=== PATIENT | female | born 1940 | race Caucasian/White ===

== ENCOUNTER 2025-01-31 10:10 | Inpatient (IN) | payer OTHER, MEDICAID ==
[~2025-01-31] VITALS: Ht 149.9 cm; Wt 65.3 kg
[2025-01-31 11:23] LABS: BASOPHILS # (AUTO) 0.1 K/uL (0.0-0.2); BASOPHILS % (AUTO) 0.4 % (0.0-2.0); EOSINOPHILS # (AUTO) 0.1 K/uL (0.0-0.7); EOSINOPHILS % (AUTO) 0.4 % (0.0-6.0); HEMATOCRIT 39 % (33-45); HEMOGLOBIN 13.5 g/dL (11.5-14.8); LYMPHOCYTES # (AUTO) 2.8 K/uL (0.8-4.8); LYMPHOCYTES % (AUTO) 18.1 % (20.0-44.0); MEAN CORPUSCULAR HEMOGLOBIN 31 PG (26.0-33.0); MEAN CORPUSCULAR HGB CONC 35 g/dl (31.0-36.0); MEAN CORPUSCULAR VOLUME 88 fL (82-100); MONOCYTES # (AUTO) 0.8 K/uL (0.1-1.30); MONOCYTES % (AUTO) 5.1 % (2.0-12.0); NEUTROPHILS # (AUTO) 11.9 K/uL (1.8-8.9); PLATELET COUNT (AUTO) 196 K/uL (150-450); RED BLOOD CELL COUNT(AUTO) 4.42 MIL/uL (4.0-5.2); RED CELL DISTRIBUTION WIDTH 13.4 % (11.5-15.0); WHITE BLOOD COUNT (AUTO) 15.6 K/uL (4.3-11.0)
[2025-01-31 11:28] LABS: CALCIUM, SERUM 9.3 mg/dL (8.5-10.1); CARBON DIOXIDE 23 mmol/L (21-32); CHLORIDE 103 mmol/L (98-107); CREATININE 1.2 mg/dL (0.6-1.3); GLUCOSE 241 mg/dL (74-106); POTASSIUM 3.3 mmol/L (3.5-5.1); SODIUM SERUM 139 mmol/L (136-145); UREA NITROGEN, BLOOD 14 mg/dL (7-18)
[2025-01-31 11:29] LABS: SERUM AMMONIA 11 umol/L (11-32)
[2025-01-31 11:30] LABS: INR 1.08 (0.91-1.10); PARTIAL THROMBOPLASTIN TIME 28.3 SEC (24.3-34.3); PROTHROMBIN TIME 11.4 SECS (9.2-11.1)
[2025-01-31 11:34] LABS: ACETAMINOPHEN <10 ug/ml (10-30); ALANINE AMINOTRANSFERASE 21 U/L (12-78); ALCOHOL, BLOOD < 3 mg/dL (0-10); ALKALINE PHOSPHATASE 119 U/L (46-116); ASPARTATE AMINOTRANSFERASE 52 U/L (15-37); BILIRUBIN,DIRECT 0.2 mg/dL (0.0-0.2); BILIRUBIN,TOTAL 0.8 mg/dL (0.2-1.0); SALICYLATE 1.6 mg/dL (2.8-20.0); TOTAL PROTEIN, SERUM 7.5 g/dL (6.4-8.2)
[2025-01-31 11:37] LABS: LACTIC ACID 3.1 mmol/L (0.4-2.0)
[2025-01-31 11:50] LABS: APPEARANCE,URINE CLEAR (CLEAR); BILIRUBIN,URINE Negative (NEGATIVE); BLOOD, URINE Large Ery/uL (NEGATIVE); COLOR,URINE YELLOW (YELLOW); KETONES,URINE Trace mg/dL (NEGATIVE); LEUKOCYTE ESTERASE ,URINE Negative (NEGATIVE); NITRITE, URINE NEGATIVE (NEGATIVE); PH,URINE 5.5 (5.0-8.0); PROTEIN,URINE 30 mg/dl (NEGATIVE); UGLUCOSE 250 MG/DL mg/dL (NEGATIVE); UROBILINOGEN,URINE 0.2 EU/dL (0.2)
[2025-01-31 12:01] LABS: ADD URINE CULTURE NO; BACTERIA,URINE Few /HPF (None Seen); HYALINE CASTS, URINE Few /LPF (None Seen); SQUAMOUS EPITHELIAL CELL,UR Few /HPF (None Seen)
[2025-01-31] MEDS: IV NS 0.9% 1,000 ML BAG IV ONE (12:01)
[2025-01-31 12:05] LABS: AMPHETAMINE, URINE NEGATIVE (NEGATIVE); BARBITURATE, URINE NEGATIVE (NEGATIVE); BENZODIAZEPINE, URINE NEGATIVE (NEGATIVE); CANNABINOID, URINE NEGATIVE (NEGATIVE); COCCAINE, URINE NEGATIVE (NEGATIVE); OPIATE, URINE NEGATIVE (NEGATIVE); PHENCYCLIDINE SCREEN,URINE NEGATIVE (NEGATIVE)
[2025-01-31] MEDS ORDERED: SITA100T PO (13:13)
[2025-01-31] MEDS ORDERED: HYDR5TAB PO (13:13)
[2025-01-31] MEDS ORDERED: GLIP5TAB13 PO ×2 (13:13)
[2025-01-31] MEDS ORDERED: LEVO100T9 PO (13:13)
[2025-01-31] MEDS ORDERED: METF-881 PO (13:13)
[2025-01-31] MEDS ORDERED: GEMTESA PO (13:13)
[2025-01-31] MEDS ORDERED: HYDR5TAB13 PO (13:13)
[2025-01-31] MEDS ORDERED: ENAL10TA39 PO (13:13)
[2025-01-31] MEDS ORDERED: ATOR20TA PO (13:13)
[2025-01-31] MEDS ORDERED: FLUD0.1T PO (13:13)
[2025-01-31] MEDS: VANCOMYCIN 1 GM in IV D5W 250 ML IV ONE (13:30)
[2025-01-31] MEDS ORDERED: ONDANSETRON HCL/PF 4 MG/2 ML VIAL IVP PRN (13:30)
[2025-01-31] MEDS ORDERED: Z GUARD REMEDY 4 OZ OINT TP PRN (13:30)
[2025-01-31] MEDS: CEFEPIME 1 GM in IV D5W 50 ML IV ONE (13:31)
[2025-01-31] MEDS ORDERED: DEXTROSE 50%-WATER 50 ML DISP.SYRIN IV PRN (14:00)
[2025-01-31] MEDS: POTASSIUM CL. PREMIX PERIPHER. 50 ML IV SCH (14:29)
[2025-01-31 16:00] VITALS: BP 120/68; TEMP 98.6; O2SAT 96
[2025-01-31 16:39] VITALS: BP 152/81; TEMP 100.2; O2SAT 96
[2025-01-31] MEDS: IV D5/ 0.9% NACL 1,000 ML IV PRN (17:12)
[2025-01-31] MEDS: HYDROCORTISONE SOD SUCCINATE 100 MG/2 ML VIAL IV ONE (17:13)
[2025-01-31] MEDS: ACETAMINOPHEN 650 MG/SUPP.RECT RC PRN (17:34)
[2025-01-31] MEDS: INSULIN REGULAR, HUMAN 100 UNIT/ML 3 ML VIAL SQ PRN (18:02)
[2025-01-31] MEDS: BLOOD SUGAR DIAGNOSTIC 1 EACH STRIP IN SCH (18:03)
[2025-01-31 20:00] VITALS: BP 130/74; TEMP 99.1; O2SAT 95
[2025-01-31 20:10] VITALS: BP 130/74; TEMP 99.1; O2SAT 95
[2025-01-31] MEDS: HYDROCORTISONE SOD SUCCINATE 100 MG/2 ML VIAL IV SCH (21:28)
[2025-02-01] VITALS (8 sets, daily range): BP systolic 121–153; BP diastolic 77–88; TEMP 98.1–98.8; O2SAT 95–99
[2025-02-01 07:44] LABS: BASOPHILS % (AUTO) 0.2 % (0.0-2.0); EOSINOPHILS % (AUTO) 0.2 % (0.0-6.0); HEMATOCRIT 32 % (33-45); HEMOGLOBIN 11.5 g/dL (11.5-14.8); MEAN CORPUSCULAR HEMOGLOBIN 31 PG (26.0-33.0); MEAN CORPUSCULAR HGB CONC 36 g/dl (31.0-36.0); MEAN CORPUSCULAR VOLUME 87 fL (82-100); MONOCYTES # (AUTO) 0.4 K/uL (0.1-1.30); MONOCYTES % (AUTO) 4.1 % (2.0-12.0); NEUTROPHILS % (AUTO) 74.5 % (43.0-81.0); PLATELET COUNT (AUTO) 164 K/uL (150-450); RED BLOOD CELL COUNT(AUTO) 3.72 MIL/uL (4.0-5.2); RED CELL DISTRIBUTION WIDTH 13.2 % (11.5-15.0); WHITE BLOOD COUNT (AUTO) 9.3 K/uL (4.3-11.0)
[2025-02-01 08:16] LABS: CALCIUM, SERUM 8.2 mg/dL (8.5-10.1); MAGNESIUM 1.5 mg/dL (1.8-2.4); PHOSPHORUS 3.1 mg/dL (2.5-4.9); POTASSIUM 2.9 mmol/L (3.5-5.1)
[2025-02-01] MEDS: PANTOPRAZOLE 40 MG VIAL IV SCH (08:28)
[2025-02-01] MEDS: HYDROCORTISONE SOD SUCCINATE 100 MG/2 ML VIAL IV SCH (08:29)
[2025-02-01] MEDS: ENALAPRIL MALEATE (10 MG) 10 MG TABLET PO SCH (08:29)
[2025-02-01] MEDS ORDERED: DEXTROSE 50%-WATER 50 ML DISP.SYRIN IV PRN (08:30)
[2025-02-01] MEDS: LEVOTHYROXINE INJ 100 MCG VIAL IV SCH (08:42)
[2025-02-01] MEDS: IV NS 0.9% 1,000 ML IV PRN (10:48)
[2025-02-01] MEDS: Magnesium 1GM/D5W 100ML PREMIX 100 ML IV SCH (10:49)
[2025-02-01] MEDS: BLOOD SUGAR DIAGNOSTIC 1 EACH STRIP IN SCH (12:39)
[2025-02-01] MEDS: INSULIN REGULAR, HUMAN 100 UNIT/ML 3 ML VIAL SQ PRN (12:40)
[2025-02-01] MEDS ORDERED: VANCOMYCIN 750 MG in IV D5W 250 ML IV SCH (14:00)
[2025-02-01] MEDS: CEFEPIME 1 GM in IV D5W 50 ML IV SCH (14:49)
[2025-02-01] MEDS: POTASSIUM CL. PREMIX PERIPHER. 50 ML IV SCH (15:23)
[2025-02-01] MEDS: VANCOMYCIN 1 GM in IV D5W 250 ML IV SCH (15:53)
[2025-02-01] MEDS ORDERED: ACETAMINOPHEN 325 MG TABLET PO PRN (17:00)
[2025-02-01] MEDS: HYDROCODONE/APAP 5/325MG TABLET PO PRN (17:13)
[2025-02-01] MEDS: NEOMY SULF/BACITRAC ZN/POLY 15 GM TUBE TP SCH (17:15)
[2025-02-02 06:59] LABS: CALCIUM, SERUM 7.8 mg/dL (8.5-10.1); CREATININE 0.9 mg/dL (0.6-1.3); POTASSIUM 3.1 mmol/L (3.5-5.1)
[2025-02-02 08:00] VITALS: BP 149/90; TEMP 97.9; O2SAT 99
[2025-02-02 08:38] VITALS: BP 149/90; TEMP 97.9; O2SAT 99
[2025-02-02] MEDS: POTASSIUM CHLORIDE 20 MEQ POWDER PACKET PO ONE (08:43)
[2025-02-02] MEDS: FLUDROCORTISONE 0.1 MG TABLET PO SCH (08:43)
[2025-02-02] MEDS: CLOTRIMAZOLE/BETAMETASONE DIPROPIONATE 15 GM TUBE TP SCH (08:45)
[2025-02-02] MEDS: CEFEPIME 2 GM in IV D5W 100 ML IV SCH (10:13)
[2025-02-02 11:40] VITALS: BP 171/88
[2025-02-02 16:00] VITALS: BP_SYST 134; BP_SYST 149; BP_DIAS 70; BP_DIAS 90; TEMP 97.9; TEMP 98.4; O2SAT 95; O2SAT 99
[2025-02-02] MEDS: HYDROCORTISONE SOD SUCCINATE 100 MG/2 ML VIAL IV SCH (17:12)
[2025-02-02] MEDS: IBUPROFEN 200 MG TABLET PO PRN (17:13)
[2025-02-02 20:00] VITALS: BP 148/71; TEMP 98.1; O2SAT 96
[2025-02-03 06:56] LABS: BASOPHILS % (AUTO) 0.2 % (0.0-2.0); EOSINOPHILS # (AUTO) 0.1 K/uL (0.0-0.7); EOSINOPHILS % (AUTO) 1.7 % (0.0-6.0); HEMATOCRIT 31 % (33-45); HEMOGLOBIN 10.9 g/dL (11.5-14.8); LYMPHOCYTES # (AUTO) 1.9 K/uL (0.8-4.8); MEAN CORPUSCULAR HEMOGLOBIN 31 PG (26.0-33.0); MEAN CORPUSCULAR HGB CONC 35 g/dl (31.0-36.0); MEAN CORPUSCULAR VOLUME 88 fL (82-100); MONOCYTES # (AUTO) 0.5 K/uL (0.1-1.30); MONOCYTES % (AUTO) 6.4 % (2.0-12.0); NEUTROPHILS # (AUTO) 5.3 K/uL (1.8-8.9); NEUTROPHILS % (AUTO) 67.7 % (43.0-81.0); PLATELET COUNT (AUTO) 149 K/uL (150-450); RED BLOOD CELL COUNT(AUTO) 3.52 MIL/uL (4.0-5.2); RED CELL DISTRIBUTION WIDTH 12.9 % (11.5-15.0); WHITE BLOOD COUNT (AUTO) 7.8 K/uL (4.3-11.0)
[2025-02-03 07:40] LABS: ALBUMIN 2.6 g/dL (3.4-5.0); BILIRUBIN,TOTAL 0.6 mg/dL (0.2-1.0); CALCIUM, SERUM 8.5 mg/dL (8.5-10.1); CREATININE 0.9 mg/dL (0.6-1.3); MAGNESIUM 1.9 mg/dL (1.8-2.4); PHOSPHORUS 2.5 mg/dL (2.5-4.9); POTASSIUM 3.3 mmol/L (3.5-5.1); TOTAL PROTEIN, SERUM 5.9 g/dL (6.4-8.2)
[2025-02-03] MEDS: HYDROCORTISONE SOD SUCCINATE 100 MG/2 ML VIAL IV SCH (08:17)
[2025-02-03] MEDS: POTASSIUM CHLORIDE 20 MEQ POWDER PACKET PO ONE (08:24)
[2025-02-03] MEDS: MAGNESIUM OXIDE 400 MG TABLET PO ONE (08:25)
[2025-02-03 08:30] VITALS: BP 168/75; TEMP 97.7; O2SAT 98
[2025-02-03] MEDS ORDERED: PANTOPRAZOLE 40 MG TABLET.DR PO SCH (09:00)
[2025-02-03] MEDS ORDERED: POTASSIUM CHLORIDE 20 MEQ POWDER PACKET PO SCH (12:00)
[2025-02-03 16:00] VITALS: BP 127/71; TEMP 97.9; O2SAT 96
[2025-02-03 20:00] VITALS: BP 114/73; TEMP 97.9; O2SAT 98
[2025-02-04 07:27] LABS: CALCIUM, SERUM 8.5 mg/dL (8.5-10.1); CREATININE 0.8 mg/dL (0.6-1.3)
[2025-02-04 07:30] VITALS: BP_SYST 141; BP_SYST 147; BP_DIAS 56; BP_DIAS 71; TEMP 98.1; TEMP 98.2; O2SAT 96; O2SAT 99
[2025-02-04] MEDS: POTASSIUM CHLORIDE 20 MEQ POWDER PACKET PO ONE ×3 (09:16→17:23)
[2025-02-04] MEDS: MAGNESIUM OXIDE 400 MG TABLET PO ONE (09:16)
[2025-02-04] MEDS: LEVOTHYROXINE SODIUM 100 MCG TABLET PO SCH (09:17)
[2025-02-04] MEDS: PANTOPRAZOLE 40 MG TABLET.DR PO SCH (09:17)
[2025-02-04 16:00] VITALS: BP 134/66; TEMP 98.1; O2SAT 97
[2025-02-04 20:00] VITALS: BP 142/72; TEMP 97.7; O2SAT 98
[2025-02-04 21:43] VITALS: BP 142/72; TEMP 97.7; O2SAT 98
[2025-02-05 08:00] VITALS: BP 152/97; TEMP 98.1; O2SAT 96
[2025-02-05 08:22] VITALS: BP 152/97
[2025-02-05 09:12] LABS: CALCIUM, SERUM 9.2 mg/dL (8.5-10.1); CREATININE 0.9 mg/dL (0.6-1.3)
[2025-02-05] MEDS: POTASSIUM CHLORIDE 20 MEQ POWDER PACKET PO ONE ×2 (13:06→16:32)
[2025-02-05] MEDS ORDERED: POTASSIUM CHLORIDE 20 MEQ POWDER PACKET PO ONE (18:00)
== END 2025-02-05 17:55 | DRG 177 ==
LOC: ER 10:15 → MED 13:43
PROVIDERS: ADMIT Nurse Practitioner Acute Care; ATTEND Nurse Practitioner Acute Care
DX: J69.0 Pneumonitis due to inhalation of food and vomit (principal); G92.8 Other toxic encephalopathy; E27.1 Primary adrenocortical insufficiency; E87.20 Acidosis, unspecified; M62.82 Rhabdomyolysis; N17.9 Acute kidney failure, unspecified; J98.11 Atelectasis; E27.2 Addisonian crisis; E11.9 Type 2 diabetes mellitus without complications; E78.5 Hyperlipidemia, unspecified; E87.6 Hypokalemia; I10 Essential (primary) hypertension; E86.9 Volume depletion, unspecified; E03.9 Hypothyroidism, unspecified; Z20.822 Contact with and (suspected) exposure to COVID-19; M50.31 Other cervical disc degeneration, high cervical region; M48.02 Spinal stenosis, cervical region; L30.4 Erythema intertrigo; W19.XXXA Unspecified fall, initial encounter; Y93.9 Activity, unspecified; D72.829 Elevated white blood cell count, unspecified; L89.890 Pressure ulcer of other site, unstageable; M25.531 Pain in right wrist; M11.231 Other chondrocalcinosis, right wrist; S20.322A Blister (nonthermal) of left front wall of thorax, initial encounter; S70.322A Blister (nonthermal), left thigh, initial encounter; X58.XXXA Exposure to other specified factors, initial encounter; L89.816 Pressure-induced deep tissue damage of head; L89.896 Pressure-induced deep tissue damage of other site; L89.899 Pressure ulcer of other site, unspecified stage; M19.09 Primary osteoarthritis, other specified site; Z79.84 Long term (current) use of oral hypoglycemic drugs; Y92.009 Unspecified place in unspecified non-institutional (private) residence as the place of occurrence of the external cause
CPT/HCPCS: 36415; 70450-TC; 70551-TC; 71045-TC; 72125-TC; 73030-TC; 73110; 73130-TC; 73521; 73564-TC; 80048-TC; 80053-TC; 80061-TC; 80076-TC; 80202-TC; 81001; 82024; 82140-TC; 82533; 82550-TC; 82553; 82962-TC; 83605-TC; 83735-TC; 84100-TC; 84443-TC; 85025-TC; 85730-TC; 87040-TC; 87081-TC; 87086-TC; 92526; 92611-TC; 97110-TC; 97116-TC; 97530-TC; 97535-TC; A4223; A6403; G0378; G0480; J0692; J1720; J1815; J2470; J3370; J3371; J3475; J3480; J7030; J7042; J7050; J7060